=== PATIENT | male | born 1980 | race Caucasian/White ===

== ENCOUNTER 2022-05-29 14:39 | Emergency (ER) | payer BC ==
[~2022-05-29] VITALS: Ht 165.1 cm; Wt 59.0 kg
[2022-05-29 15:05] VITALS: BP 115/71
--- NOTE | 2022-05-29 15:28 | NUR ---
DR JACKMAN SPEAKING W/ PT
[2022-05-29] MEDS ORDERED: MUPI22OI2 TP (15:39)
--- NOTE | 2022-05-29 15:43 | NUR ---
Patient discharged to home in stable condition. Written and verbal after care instructions given. Patient verbalizes understanding of instruction.
== END 2022-05-29 15:45 | disposition home or self-care (01) ==
LOC: ER 14:50
DX: R21 Rash and other nonspecific skin eruption (principal); Z60.2 Problems related to living alone